=== PATIENT | male | born 1945 | race Caucasian/White ===

== ENCOUNTER 2017-05-07 10:43 | Inpatient (IN) ==
[2017-05-07 12:04] LABS: URINE SOURCE CATH
[2017-05-07] MEDS ORDERED: NS 1,000 ML IV ONE (12:10)
[2017-05-07] MEDS ORDERED: ZOFRAN IV ONE (12:10)
[2017-05-07 12:20] LABS: UR AMPHETAMINES QUAL NONE DETECTED (NONE DETECT); UR BARBITUATES QUAL NONE DETECTED (NONE DETECT); UR BENZODIAZEPIN QUAL NONE DETECTED (NONE DETECT); UR CANNABINOIDS QUAL NONE DETECTED (NONE DETECT); UR COCAINE QUAL NONE DETECTED (NONE DETECT); UR METHADONE QUAL NONE DETECTED (NONE DETECT); UR OPIATES QUAL NONE DETECTED (NONE DETECT); UR OXYCODONE QUAL NONE DETECTED (NONE DETECT); UR PCP QUAL NONE DETECTED (NONE DETECT)
[2017-05-07 12:28] LABS: BILIRUBIN URINE SMALL (NEGATIVE); COLOR YELLOW; GLUCOSE URINE NEGATIVE (NEGATIVE); TURBIDITY URINE TURBID (CLEAR)
[2017-05-07 12:29] LABS: BLOOD URINE LARGE (NEGATIVE); LEUKOCYTES URINE MODERATE (NEGATIVE); NITRITE URINE NEGATIVE (NEGATIVE); PH URINE 5.5; PROTEIN URINE 100 mg/dL (NEGATIVE); SP GRAVITY URINE 1.017; URINE MICRO REVIEW NEEDED? YES; UROBILINOGEN URINE NORMAL (NORMAL)
[2017-05-07 12:40] LABS: UR EPITHELIAL CELLS <10 /HPF (<10); URINE BACTERIA 3+ /HPF; URINE CULTURE NEEDED? YES; URINE WBC TNTC /HPF (<10)
[2017-05-07 13:03] LABS: BASO% 0.1 % (0.0-0.8); EOS# 0.02 X1000 (0.0-0.7); EOS% 0.3 % (0.0-10.0); HEMATOCRIT 33.5 % (42.0-52.0); HEMOGLOBIN 11.2 g/dL (14.0-18.0); IMM GRAN# 0.03 X1000 (0.0-0.04); IMM GRAN% 0.4 % (0.0-0.5); LYMPH# 0.46 X1000 (1.2-3.4); LYMPH% 5.9 % (20.5-51.1); MANUAL DIFF NEEDED? NO; MCH 30.4 PG (27-31); MCHC 33.4 g/dL (33-37); MONO# 0.26 X1000 (0.11-0.59); MONO% 3.3 % (1.7-9.3); MPV 9.4 FL (7.4-10.4); PLT 187 X1000 (130-400); RBC 3.68 XMIL (4.7-6.1)
[2017-05-07 13:16] LABS: ALBUMIN 3.5 g/dL (3.5-5.0); CALCIUM 9.3 mg/dL (8.8-10.2); POTASSIUM 4.9 mmol/L (3.5-5.1); TOTAL BILIRUBIN 0.68 mg/dL (0.20-1.00); TOTAL PROTEIN 6.9 g/dL (6.3-8.3)
[2017-05-07] MEDS ORDERED: ROCEPHIN 1 GM in NS 50 ML IV ONE (13:21)
[2017-05-07] MEDS ORDERED: NS 250 ML ONE (14:41)
[2017-05-07] MEDS ORDERED: CARBOCAINE PF 2% ONE (14:53)
[2017-05-07] MEDS ORDERED: ROCEPHIN 1 GM in NS 50 ML IV SCH (17:45)
[2017-05-07] MEDS ORDERED: MORPHINE IV PRN (23:00)
[2017-05-07] MEDS ORDERED: ZOFRAN IV PRN (23:00)
[2017-05-07] MEDS: NS 1,000 ML IV SCH (23:31)
[2017-05-07] MEDS: TYLENOL PO PRN (23:33)
[2017-05-08] MEDS: PRILOSEC PO SCH (06:13)
[2017-05-08 07:13] LABS: HEMATOCRIT 26.8 % (42.0-52.0); HEMOGLOBIN 8.9 g/dL (14.0-18.0); MCH 31.1 PG (27-31); MCHC 33.2 g/dL (33-37); MCV 93.7 FL (81-99); MPV 9.4 FL (7.4-10.4); RBC 2.86 XMIL (4.7-6.1)
[2017-05-08 07:40] LABS: POTASSIUM 4.5 mmol/L (3.5-5.1)
[2017-05-08 08:17] LABS: CALCIUM 7.8 mg/dL (8.8-10.2)
[2017-05-08] MEDS ORDERED: NS 500 ML ONE (10:56)
[2017-05-08] MEDS ORDERED: HEPARIN ONE (10:57)
[2017-05-08] MEDS ORDERED: CARBOCAINE PF 2% ONE (10:58)
[2017-05-08] MEDS ORDERED: DIPRIVAN 1% ONE (13:50)
[2017-05-08] MEDS ORDERED: EPHEDRINE ONE (13:51)
[2017-05-08] MEDS ORDERED: SODIUM CHLORIDE 0.9% 10 ML ONE (13:51)
[2017-05-08] MEDS: NS 1,000 ML IV SCH ×2 (14:35→14:56)
[2017-05-08] MEDS ORDERED: ROCEPHIN 1 GM in NS 50 ML IV SCH (16:00)
[2017-05-08] MEDS: TYLENOL PO PRN ×2 (16:53→22:19)
[2017-05-09 04:42] VITALS: BP 104/49
[2017-05-09] MEDS: PRILOSEC PO SCH (06:10)
[2017-05-09 07:11] LABS: HEMATOCRIT 27.3 % (42.0-52.0); MCH 30.6 PG (27-31); MCV 92.9 FL (81-99); MPV 9.2 FL (7.4-10.4); RBC 2.94 XMIL (4.7-6.1)
[2017-05-09 07:43] LABS: CALCIUM 8.5 mg/dL (8.8-10.2); POTASSIUM 4.4 mmol/L (3.5-5.1)
[2017-05-09] MEDS ORDERED: SEPTRA DS PO ONE (13:46)
== END 2017-05-09 14:28 | disposition home health service (06) ==
LOC: ED 10:43 → EDIPHOLD 17:43 → 3N 21:28
PROVIDERS: ATTEND Internal Medicine